=== PATIENT | female | born 1990 | race Caucasian/White ===

== ENCOUNTER 2022-01-05 19:04 | Observation (INO) ==
[2022-01-05] MEDS ORDERED: MoRPHine SULFATE 4 MG/ML 1 ML CARP\\VIAL IV STA ×3 (19:30→23:27)
[2022-01-05] MEDS ORDERED: SODIUM CHLORIDE 0.9% 1000ML 1,000 ML IV ONE (19:30)
--- NOTE | 2022-01-05 19:36 | Emergency Department Note ---
History of Present Illness General Chief complaint: Leg Injury/Pain Time Seen by Provider: 01/05/22 19:24 Source: patient Mode of arrival: ambulatory Limitations: no limitations History of Present Illness Maximum Pain Intensity: 8 This patient comes in after falling off a climbing wall. She landed on her feet she injured her left and to lesser grade the right ankle. Left ankle has some deformity to it and it significantly painful. She was brought in by EMS and was given 6 morphine IM and 4 Zofran ODT. She denies any other injuries she denies back pain or knee pain denies head pain or loss of consciousness. No headache no chest pain or shortness of breath. She denies as she is had a tubal ligation. She had anything to eat was around 200 Home Medications Medication Instructions Recorded Confirmed Type cholecalciferol (vitamin D3) 25 25 mcg PO DAILY 01/05/22 01/05/22 History mcg (1,000 unit) capsule (Vitamin D3) vitamin B complex 1 tab PO DAILY 01/05/22 01/05/22 History Allergies Allergy/AdvReac Type Severity Reaction Status Date / Time Penicillins Allergy Intermediate HIVES A Verified 01/05/22 19:59 CHILD Past Med/Surg History Social History Smoking Status: Never smoker Hx Substance Use: No Feels Safe at Home: Yes Immunizations: Historynone Allergiespenicillin Review of Systems A total of 10 systems reviewed and were otherwise negative Physical Exam Vital Signs Vital Signs - 24 hr 01/05/22 19:12 01/05/22 19:44 01/05/22 20:00 Temperature 37 C Temperature Source Oral Pulse Rate 101 H 117 H Pulse Rate [Apical] 111 H Respiratory Rate 18 18 18 Respiratory Effort / Characteristics Non-Labored Spontaneous Non-Labored Spontaneous Respiratory Depth Normal Normal Blood Pressure 130/87 Blood Pressure [Right Arm] 116/71 130/89 Blood Pressure Mean 101 Blood Pressure Mean [Right Arm] 86 Pulse Oximetry 100 100 100 Oxygen Delivery Method Room Air Room Air Nasal Cannula Oxygen Flow Rate 6 Sepsis Recent Fever Within 48 Hours No Sepsis New/Unexplained Change in Mental Status No Sepsis Action Taken by Nursing No Action Required End Tidal CO2 (18-54mmHg) 41 01/05/22 20:05 01/05/22 20:10 01/05/22 20:15 Temperature Temperature Source Pulse Rate 129 H 126 H 114 H Pulse Rate [Apical] Respiratory Rate 16 16 18 Respiratory Effort / Characteristics Respiratory Depth Blood Pressure Blood Pressure [Right Arm] 141/83 H 137/81 133/80 Blood Pressure Mean Blood Pressure Mean [Right Arm] Pulse Oximetry 100 100 100 Oxygen Delivery Method Nasal Cannula Nasal Cannula Room Air Oxygen Flow Rate 6 3 Sepsis Recent Fever Within 48 Hours Sepsis New/Unexplained Change in Mental Status Sepsis Action Taken by Nursing End Tidal CO2 (18-54mmHg) 20 24 29 01/05/22 20:20 01/05/22 20:25 01/05/22 20:30 Temperature Temperature Source Pulse Rate 110 H 102 H 106 H Pulse Rate [Apical] Respiratory Rate 18 18 18 Respiratory Effort / Characteristics Respiratory Depth Blood Pressure Blood Pressure [Right Arm] 131/86 138/86 135/91 Blood Pressure Mean Blood Pressure Mean [Right Arm] Pulse Oximetry 100 98 100 Oxygen Delivery Method Room Air Room Air Room Air Oxygen Flow Rate Sepsis Recent Fever Within 48 Hours Sepsis New/Unexplained Change in Mental Status Sepsis Action Taken by Nursing End Tidal CO2 (18-54mmHg) 19 01/05/22 20:51 01/05/22 22:48 Temperature Temperature Source Pulse Rate Pulse Rate [Apical] 94 H 99 H Respiratory Rate 18 18 Respiratory Effort / Characteristics Non-Labored Spontaneous Non-Labored Spontaneous Respiratory Depth Normal Normal Blood Pressure Blood Pressure [Right Arm] 125/79 122/74 Blood Pressure Mean Blood Pressure Mean [Right Arm] 94 90 Pulse Oximetry 98 100 Oxygen Delivery Method Room Air Room Air Oxygen Flow Rate Sepsis Recent Fever Within 48 Hours Sepsis New/Unexplained Change in Mental Status Sepsis Action Taken by Nursing End Tidal CO2 (18-54mmHg) General: Well developed well nourished female who is complaining of pain in her left ankle in no acute distress, breathing comfortably on room air. Normal speech HEENT: Normal cephalic atraumatic. Pupils are equal round and reactive to light. Extraocular movements are intact. Oropharynx is pink with moist mucous membranes. No swelling of the mouth lips or tongue. Neck: Supple with a midline trachea. No meningeal signs or stiffness, no JVD or bruits. No Stridor. Chest: Clear to auscultation bilaterally. No wheezes or rhonchi. No increased work of breathing. Heart: Regular rate and rhythm without murmurs or gallops. Abdomen: Soft nontender, nondistended without rebound guarding or rigidity. Extremities: No cyanosis clubbing or edema. No calf tenderness or assymetry. the left ankle is closed but looks deformity is distal pulses and capillary refill. There is no significant swelling of the right she has mild tenderness. Spine/Back. Non tender to palpation. No CVA tenderness Skin: Good turgor without rashes. Neurologic exam: Cranial nerves two through 12 are intact. Motor and sensation are intact and symmetrical throughout. Respiratory normal respiratory effort, lungs clear to auscultation Cardiovascular RRR, no murmur, no edema Rate/Rhythm: regular rate and regular rhythm Heart Sounds: normal S1 and normal S2; no murmur Palpation: + palpable S3 Vessels: no JVD Extremities: normal capillary refill; no calf tenderness and no edema Procedures Free Text Procedures Procedural Sedation Indication fracture/dislocation of left ankle Total time: 15 minutes. Written consent was obtained after the risks and benefits were explained to and her, i significant otherncluding, but not limited to aspiration, allergic reaction, breathing difficulties, cardiac complications, vomiting, pain, event recall, bleeding, and/or infection. Pre-sedation examination and paperwork completed. The patient was on 100% oxygen via NRB prior to the procedure. Continous end tidal CO2 monitoring, pulse oximetry, and cardiac monitoring were utilized. Suction, airway equipment, medications, respiratory equipment, and appropriate personnel were prepared prior to the initiation of the procedure. A time out was taken. Sedation was achieved utilizing 70 mg of Ketamine . After I observed the patient had reached the appropriate level of sedation the main procedure was performed without complication. Sedation was discontinued and the monitoring continued. The patient recovered quickly from the effects of the medication without complication or adverse event. Course Administered Medications Discontinued Medications Sodium Chloride (Nss 1000ml) 1,000 mls @ 999 mls/hr IV .Q1H1M ONE Stop: 01/05/22 20:30 Last Infusion: 01/05/22 20:28 Dose: 0 mls/hr Documented By: Admin: 01/05/22 19:36 Dose: 999 mls/hr Documented By: VIMAL Ketamine HCl (Ketamine Hcl Inj 50 Mg/Ml 10 Ml Vial) Confirm Administered Dose 500 mg .ROUTE .STK-MED ONE Stop: 01/05/22 19:58 Last Increment: 01/05/22 20:17 Dose: 70 mg Documented By: ANEL Ketorolac Tromethamine (Ketorolac Tromethamine 15 Mg/Ml Vial) 10 mg IV NOW ONE Stop: 01/06/22 00:58 Last Admin: 01/06/22 01:03 Dose: 10 mg Documented By: MAEVE Morphine Sulfate (Morphine Sulfate 4 Mg/Ml 1 Ml Carp\Vial) 4 mg IV NOW STA Stop: 01/05/22 19:31 Last Admin: 01/05/22 19:36 Dose: 4 mg Documented By: VIMAL Morphine Sulfate (Morphine Sulfate 4 Mg/Ml 1 Ml Carp\Vial) 4 mg IV NOW STA Stop: 01/05/22 20:59 Last Admin: 01/05/22 21:19 Dose: 4 mg Documented By: VIMAL Morphine Sulfate (Morphine Sulfate 4 Mg/Ml 1 Ml Carp\Vial) 4 mg IV NOW STA Stop: 01/05/22 23:28 Last Admin: 01/05/22 23:37 Dose: 4 mg Documented By: MAEVE Morphine Sulfate (Morphine Sulfate 4 Mg/Ml 1 Ml Carp\Vial) 4 mg IV NOW STA Stop: 01/06/22 00:58 Last Admin: 01/06/22 01:03 Dose: 4 mg Documented By: MAEVE Medical Decision Making Differential Diagnosis fracture, ankle dislocation, orthopedic injuries, spinal injuries Laboratory Data Attestation: I reviewed the patient's lab results. Left ankle Right ankle Result diagrams: 01/06/22 00:00 01/06/22 00:00 Lab Results 01/06/22 01/06/22 01/06/22 Range/Units 00:00 00:00 00:00 WBC 13.63 H (4.8-10.8) K/ul RBC 4.12 (3.93-5.22) M/uL Hgb 12.3 (12.0-16.0) g/dl Hct 37.3 (34.1-44.9) % MCV 90.5 (80.0-100.0) fL MCH 29.9 (25.0-34.0) pg MCHC 33.0 (32.0-36.0) g/dL RDW Std Deviation 42.9 (36.4-46.3) fL RDW Coeff of Kamille 13.0 (11.5-14.5) % Plt Count 246 (130-400) K/uL MPV 10.8 (9.4-12.3) fL Immature Gran % (Auto) 0.3 % Neut % (Auto) 67.3 % Lymph % (Auto) 25.8 % Perry % (Auto) 6.2 % Eos % (Auto) 0.1 % Baso % (Auto) 0.3 % Neut # (Auto) 9.18 H (1.4-6.5) K/uL Lymph # (Auto) 3.51 H (1.2-3.4) K/uL Perry # (Auto) 0.85 H (0.24-0.82) K/uL Eos # (Auto) 0.01 (0-0.50) K/uL Baso # (Auto) 0.04 (0-0.2) K/uL Immature Gran # (Auto) 0.04 H (0.00-0.02) K/uL Sodium 139 (136-145) mmol/L Potassium 3.6 (3.5-5.1) mmol/L Chloride 108 H (98-107) mmol/L Carbon Dioxide 21 (21-32) mmol/L Anion Gap 10 (3-11) BUN 9 (6-23) mg/dl Creatinine 0.82 (0.6-1.2) mg/dl Est Cr Clr Drug Dosing 105.6 ml/min Est GFR ( Amer) 111.3 ml/min Est GFR (Non-Af Amer) 96.0 ml/min BUN/Creatinine Ratio 11.0 (10-20) Glucose 98 (70-99(Fasting)) mg/dl Calcium 8.7 (8.5-10.1) mg/dl Total Bilirubin 0.6 (0.2-1.0) mg/dl AST 24 (13-39) U/L ALT 6 L (7-52) U/L Alkaline Phosphatase 46 (34-104) U/L Total Protein 6.4 (6.0-8.3) gm/dl Albumin 4.3 (3.4-5.0) gm/dl Globulin 2.1 L (2.5-4.0) gm/dl Albumin/Globulin Ratio 2.0 (0.9-2) Lipase 8 L (11-82) U/L HCG, Qual Negative (Negative) SARS-CoV-2, RNA, NAAT (NEGATIVE) 08/03/22 Range/Units 00:05 WBC (4.8-10.8) K/ul RBC (3.93-5.22) M/uL Hgb (12.0-16.0) g/dl Hct (34.1-44.9) % MCV (80.0-100.0) fL MCH (25.0-34.0) pg MCHC (32.0-36.0) g/dL RDW Std Deviation (36.4-46.3) fL RDW Coeff of Kamille (11.5-14.5) % Plt Count (130-400) K/uL MPV (9.4-12.3) fL Immature Gran % (Auto) % Neut % (Auto) % Lymph % (Auto) % Perry % (Auto) % Eos % (Auto) % Baso % (Auto) % Neut # (Auto) (1.4-6.5) K/uL Lymph # (Auto) (1.2-3.4) K/uL Perry # (Auto) (0.24-0.82) K/uL Eos # (Auto) (0-0.50) K/uL Baso # (Auto) (0-0.2) K/uL Immature Gran # (Auto) (0.00-0.02) K/uL Sodium (136-145) mmol/L Potassium (3.5-5.1) mmol/L Chloride (98-107) mmol/L Carbon Dioxide (21-32) mmol/L Anion Gap (3-11) BUN (6-23) mg/dl Creatinine (0.6-1.2) mg/dl Est Cr Clr Drug Dosing ml/min Est GFR ( Amer) ml/min Est GFR (Non-Af Amer) ml/min BUN/Creatinine Ratio (10-20) Glucose (70-99(Fasting)) mg/dl Calcium (8.5-10.1) mg/dl Total Bilirubin (0.2-1.0) mg/dl AST (13-39) U/L ALT (7-52) U/L Alkaline Phosphatase (34-104) U/L Total Protein (6.0-8.3) gm/dl Albumin (3.4-5.0) gm/dl Globulin (2.5-4.0) gm/dl Albumin/Globulin Ratio (0.9-2) Lipase (11-82) U/L HCG, Qual (Negative) SARS-CoV-2, RNA, NAAT NEGATIVE (NEGATIVE) Imaging Data Attestation: I personally reviewed and interpreted this imaging study as follows: My Impression: Left ankle shows a trimalleolar fracture dislocation. Post reduction shows good alignment Right foot shows possible lucency at the proximal fifth metatarsal and questionable middle cuneiform lucency Radiologist's Impression: Ankle X-Ray 01/05/22 19:30 LEFT ANKLE 2 VIEWS CLINICAL HISTORY: Left ankle injury. FINDINGS: AP and crosstable lateral views of left ankle are obtained. No prior studies are available for comparison at the time of dictation. The skeletal structures are well mineralized. There is a displaced and overriding comminuted spiral fracture of the distal fibular shaft. The distal fragment is angulated and displaced dorsally by at least 6 mm. There is a displaced fracture through the base of the medial malleolus, with lateral displacement of the medial malleolus by approximately 1.5 cm. There is dorsal and lateral dislocation of the talus at the talonavicular articulation. The talus is displaced dorsally by approximately 2.5 cm and laterally by approximately 2 cm. There is valgus angulation at the tibiotalar joint. Joint effusion is noted with overlying soft tissue edema. IMPRESSION: Bimalleolar fracture/dislocation at the ankle joint as above. Electronically signed by: Ryder Garcia M.D. 01/05/2022 7:55 PM Ankle X-Ray 01/05/22 19:30 RIGHT ANKLE 2 VIEWS CLINICAL HISTORY: Right ankle injury. FINDINGS: AP and crosstable lateral views of the right ankle are obtained. No prior studies are available for comparison at the time of dictation. The skeletal structures are well mineralized. There is an indeterminant ossific density along the anterior aspect of the tibiotalar articulation which may represent an avulsion fracture. No additional fracture is seen. The ankle mortise is intact. There is a small joint effusion. Mild soft tissue swelling is seen around the ankle. IMPRESSION: 1. There is an indeterminant ossific density seen anteriorly at the tibiotalar articulation which may represent an avulsion fracture. 2. No additional findings are concerning for acute fracture. Electronically signed by: Ryder Garcia M.D. 01/05/2022 7:51 PM Ankle X-Ray 01/05/22 20:10 LEFT ANKLE 2 VIEWS CLINICAL HISTORY: Postreduction examination. FINDINGS: AP and crosstable lateral views of the left ankle are compared to study performed earlier the same day 01/05/2022. The skeletal structures are well mineralized. There is significantly improved alignment of bimalleolar fractures as compared to the prereduction examination. There is persistent lateral offset of the distal fibular fragment by 3 mm. There is minimal offset of the medial malleolar fragment and mild widening of the medial joint space. AP alignment is near-anatomic. There is a joint effusion an overlying soft tissue edema. There is also likely a tiny displaced avulsion fracture of the posterior tibial plafond. IMPRESSION: Significant improved alignment of distal tibial and fibular fractures status as above post external reduction. Electronically signed by: Ryder Garcia M.D. 01/05/2022 9:[address] of the right footstat rad: Subtle cortical fracture of the talar dome at the lateral aspect of the talar dome may reflect acute osteochondral drawl injury. Lateral cortex fracture of the calcaneus. Subtle linear cortical fracture at the anterior aspect of the posterior subtalar joint near the base of the sustenaculum nae MDM Narrative This patient comes in as above she fell her only complaints are ankle pain mostly on the left. His deformity is neurologically neurovascular intact and it is closed. IV access had been established and she was given additional morphine 4 mg IV and I ordered stat x-rays. She was kept NPO. X-rays confirm a significant fracture dislocation. It is closed. It has been 6 hours since she had food and she was in significant pain I explained the risk and the benefits and we did sedate her. I performed the sedation with ketamine. Please refer to the note she tolerated this well. Dr. Oquendo did the reduction. Please refer to his note. The patient was easily reduced with the sedation and postreduction films show good alignment a splint was placed. The patient was feeling a lot better. She is continuing some mild right ankle pain which seems diffuse may be also in the foot so I did get some further foot x-rays. There is a small avu lsion near the tail of the talus area and may be a small avulsion in the area of the fifth metatarsal. I am also questioning a possible nondisplaced cuneiform fracture. I did the patient was unable to ambulate I do think needs to be admitted for pain management and further evaluation I also did order a CT of the foot I further talked with Dr. Odell who recommended this. I have consulted the hospitalist to see the patient for these measures. Prior additional IV morphine for pain management as well while she was in the ED. CAT scan of the foot does show some subtle irregularities and she may have a lateral cortex fracture of the calcaneus with other possible linear injuries. She has no further complaint she has no back pain or abdominal pain. Her COVID test was negative. test is negative. she will be admitted/observed. Continuous cardiac monitoring: Due to the fact that we were sedating her and she was getting pain medication she was placed on a potline monitor and had normal sinus rhythm with a rate of 100 upon my interpretation Impression & Plan Closed fracture of ankle, trimalleolar, Fall, Foot fracture, right, Lab test negative for COVID-19 virus, Not currently Discharge Plan Visit Data Chief Complaint: Leg Injury/Pain ED Provider: Robert Clemens Discharge Problem: Closed fracture of ankle, trimalleolar, Fall, Foot fracture, right, Lab test negative for COVID-19 virus, Not currently Forms Stand Alone Forms: My [facility] [employer] Prescriptions Prescriptions: No Action vitamin B complex Tablet 1 tab PO DAILY cholecalciferol (vitamin D3) [Vitamin D3] 25 mcg (1,000 unit) Capsule 25 mcg PO DAILY [facility]errals [facility]Non[facility] - Sedation Data Time Out Team Members Agree on the Following: Correct Patient Site Marking Visible after Draping: Yes Team Agrees: Yes Time Out Performed Time: 20:00 Sedation Times Sedation Start Date: 01/05/22 Sedation Start Time: 20:02 Sedation End Date: 01/05/22 Sedation End Time: 20:06 Total Sedation Time: 4 Procedure Times Procedure Start Time:: 20:04 Procedure End Time: 20:05 Pre Sedation Assessment Vital Signs Temp Pulse Pulse Resp BP BP Pulse Ox 01/05/22 22:48 99 H 18 122/74 100 01/05/22 20:51 94 H 18 125/79 98 01/05/22 20:30 106 H 18 135/91 100 01/05/22 20:25 102 H 18 138/86 98 01/05/22 20:20 110 H 18 131/86 100 01/05/22 20:15 114 H 18 133/80 100 01/05/22 20:10 126 H 16 137/81 100 01/05/22 20:05 129 H 16 141/83 H 100 01/05/22 20:00 117 H 18 130/89 100 01/05/22 19:44 111 H 18 116/71 100 01/05/22 19:12 37 C 101 H 18 130/87 100 O2 Del Method O2 Flow Rate 01/05/22 22:48 Room Air 01/05/22 20:51 Room Air 01/05/22 20:30 Room Air 01/05/22 20:25 Room Air 01/05/22 20:20 Room Air 01/05/22 20:15 Room Air 01/05/22 20:10 Nasal Cannula 3 01/05/22 20:05 Nasal Cannula 6 01/05/22 20:00 Nasal Cannula 6 01/05/22 19:44 Room Air 01/05/22 19:12 Room Air Cardiovascular RRR, no murmur, no edema + regular rate and + regular rhythm + S1 normal and + S2 normal; no murmur + palpable S3 no JVD + capillary refill normal; no calf tenderness and no edema Respiratory normal respiratory effort, lungs clear to auscultation Pre-Sedation Airway Assessment Smoking Status: Never smoker Hx Sleep Apnea: No Short, Thick Neck: No Thyromental Distance: > or= 3.5 Finger Breadths Oral Cavity: + WNL Mallampati Class: I ASA: ASA1 NPO Status Date of Last Intake of Fluids: 01/05/22 Time of Last Intake of Fluids: 15:00 Date of Last Intake of Solid Food: 01/05/22 Time of Last Intake of Solid Foods: 14:30 Procedure Planning Contraindications for Sedation: none Notes The planned sedation has been discussed with the patient. Informed Consent was obtained. I have identified the patient, determined the appropriateness of sedation and have assessed the patient immediately prior to the procedure. All medicine(s) and interventions are by my order. Post Sedation Assessment Vital Signs Temp Pulse Pulse Resp BP BP Pulse Ox 01/05/22 22:48 99 H 18 122/74 100 01/05/22 20:51 94 H 18 125/79 98 01/05/22 20:30 106 H 18 135/91 100 01/05/22 20:25 102 H 18 138/86 98 01/05/22 20:20 110 H 18 131/86 100 01/05/22 20:15 114 H 18 133/80 100 01/05/22 20:10 126 H 16 137/81 100 01/05/22 20:05 129 H 16 141/83 H 100 01/05/22 20:00 117 H 18 130/89 100 01/05/22 19:44 111 H 18 116/71 100 01/05/22 19:12 37 C 101 H 18 130/87 100 O2 Del Method O2 Flow Rate 01/05/22 22:48 Room Air 01/05/22 20:51 Room Air 01/05/22 20:30 Room Air 01/05/22 20:25 Room Air 01/05/22 20:20 Room Air 01/05/22 20:15 Room Air 01/05/22 20:10 Nasal Cannula 3 01/05/22 20:05 Nasal Cannula 6 01/05/22 20:00 Nasal Cannula 6 01/05/22 19:44 Room Air 01/05/22 19:12 Room Air Recovery Score Activity: Moves 4 extremities Respiration: Deep Breath/Cough Circulation: +/-20% PreAnes Value Consciousness: Fully Awake Oxygen Saturation: > 92% On Room Air Post Anesthesia Score: 10 Discharge Sedation Level of Care: Fast Track Phase II Unexpected Event: None Post Sedation Plan On clinical assessment, the patient appears to have tolerated the sedation without complications. Patient is recovering as anticipated. Patient will continue to be monitored by nursing and may be discharged when sedation discharge criteria are met per below protocol. Upon Completions of procedure up to 15 minutes continue every 5 minute vital signs and the P.A.R. score; then discharge to a Phase I or Fast Track to Phase II per the following guidelines: * Discharge Patient to appropriate Phase II area if PAR is 8 or greater or return to pre- procedure baseline. The post - procedure orders will be as directed. * If PAR score is less than 8 or not return to pre-procedure baseline then patient will follow Phase I monitoring till PAR is reached for Phase II. The Phase I may be done in procedure room or may call to secure a Phase I area. * If naloxone or flumazenil are used for reversal, hold in Phase I for continued monitoring from when last reversal dose was given for a minimum of 60 minutes or longer pending the nurse and/or physician discretion of patient condition before discharge to Phase II. Please call the Sedation Physician to re-evaluate and complete post-note for discharge to Phase II area. Do NOT discharge from procedure sedation or Phase 1 until post- sedation evaluation note is complete by procedure /sedation MD Sedation Discharge Instructions to be given to the patient at discharge to home. Post Sedation Assessment Vital Signs Temp Pulse Pulse Resp BP BP Pulse Ox 01/05/22 22:48 99 H 18 122/74 100 01/05/22 20:51 94 H 18 125/79 98 01/05/22 20:30 106 H 18 135/91 100 01/05/22 20:25 102 H 18 138/86 98 01/05/22 20:20 110 H 18 131/86 100 01/05/22 20:15 114 H 18 133/80 100 01/05/22 20:10 126 H 16 137/81 100 01/05/22 20:05 129 H 16 141/83 H 100 01/05/22 20:00 117 H 18 130/89 100 01/05/22 19:44 111 H 18 116/71 100 01/05/22 19:12 37 C 101 H 18 130/87 100 O2 Del Method O2 Flow Rate 01/05/22 22:48 Room Air 01/05/22 20:51 Room Air 01/05/22 20:30 Room Air 01/05/22 20:25 Room Air 01/05/22 20:20 Room Air 01/05/22 20:15 Room Air 01/05/22 20:10 Nasal Cannula 3 01/05/22 20:05 Nasal Cannula 6 01/05/22 20:00 Nasal Cannula 6 01/05/22 19:44 Room Air 01/05/22 19:12 Room Air Recovery Score Activity: Moves 4 extremities Respiration: Deep Breath/Cough Circulation: +/-20% PreAnes Value Consciousness: Fully Awake Oxygen Saturation: > 92% On Room Air Post Anesthesia Score: 10 Discharge Sedation Level of Care: Phase I Post Sedation Plan On clinical assessment, the patient appears to have tolerated the sedation w ithout complications. Patient is recovering as anticipated. Patient will continue to be monitored by nursing and may be discharged when sedation discharge criteria are met per below protocol. Upon Completions of procedure up to 15 minutes continue every 5 minute vital signs and the P.A.R. score; then discharge to a Phase I or Fast Track to Phase II per the following guidelines: * Discharge Patient to appropriate Phase II area if PAR is 8 or greater or return to pre- procedure baseline. The post - procedure orders will be as directed. * If PAR score is less than 8 or not return to pre-procedure baseline then patient will follow Phase I monitoring till PAR is reached for Phase II. The Phase I may be done in procedure room or may call to secure a Phase I area. * If naloxone or flumazenil are used for reversal, hold in Phase I for continued monitoring from when last reversal dose was given for a minimum of 60 minutes or longer pending the nurse and/or physician discretion of patient condition before discharge to Phase II. Please call the Sedation Physician to re-evaluate and complete post-note for discharge to Phase II area. Do NOT discharge from procedure sedation or Phase 1 until post- sedation evaluation note is complete by procedure /sedation MD Sedation Discharge Instructions to be given to the patient at discharge to home. : Closed fracture of ankle, trimalleolar Qualifiers: Encounter type: initial encounter Laterality: left Qualified Code(s): S82.852A - Displaced trimalleolar fracture of left lower leg, initial encounter for close d fracture Fall Qualifiers: Encounter type: initial encounter Qualified Code(s): W19.XXXA - Unspecified fall, initial encounter Foot fracture, right Qualifiers: Encounter type: initial encounter Fracture type: closed Qualified Code(s): S92.901A - Unspecified fracture of right foot, initial encounter for closed fracture
--- NOTE | 2022-01-05 19:55 | XRay Report ---
RIGHT ANKLE 2 VIEWS CLINICAL HISTORY: Right ankle injury. FINDINGS: AP and crosstable lateral views of the right ankle are obtained. No prior studies are avail able for comparison at the time of dictation. The skeletal structures are well mineralized. There is an indeterminant ossific density along the anterior aspect of the tibiotalar articulation which may r epresent an avulsion fracture. No additional fracture is seen. The ankle mortise is intact. There is a small joint effusion. Mild soft tissue swelling is seen around the ankle. IMPRESSION: 1. There is an indeterminant ossific density seen anteriorly at the tibiotalar articulation which may represent an avulsion fracture. 2. No additional findings are concerning for acute fracture. Electronically signed by: Ryder Garcia M.D. 01/05/2022 7:51 PM
--- NOTE | 2022-01-05 19:56 | XRay Report ---
LEFT ANKLE 2 VIEWS CLINICAL HISTORY: Left ankle injury. FINDINGS: AP and crosstable lateral views of left ankle are obtained. No prior studies are available for comparison at the time of dictation. The skeletal structures are well mineralized. There is a dis placed and overriding comminuted spiral fracture of the distal fibular shaft. The distal fragment is angulated and displaced dorsally by at least 6 mm. There is a displaced fracture through the base of the medial malleolus, with lateral displacement of the medial malleolus by approximately 1.5 cm. Ther e is dorsal and lateral dislocation of the talus at the talonavicular articulation. The talus is disp laced dorsally by approximately 2.5 cm and laterally by approximately 2 cm. There is valgus angulatio n at the tibiotalar joint. Joint effusion is noted with overlying soft tissue edema. IMPRESSION: Bimalleolar fracture/dislocation at the ankle joint as above. Electronically signed by: Ryder Garcia M.D. 01/05/2022 7:55 PM
[2022-01-05] MEDS ORDERED: KETAMINE HCL INJ 50 MG/ML 10 ML VIAL ONE (19:57)
--- NOTE | 2022-01-05 20:25 | Emergency Department Note ---
ED Visit Note Procedure note Procedure: Closed reduction of left trimalleolar ankle fracture dislocation Indication: Closed left trimalleolar ankle fracture dislocation The patient is a 31-year-old female who presented to the emergency department after a significant fall. She fell approximately 8 feet onto her feet while she was in an indoor rockclimbing facility. The patient had no other injuries on my physical exam. X-rays did reveal a trimalleolar fracture which had anterior displacement. The patient was felt to be a good candidate for emergent re duction using procedural sedation. Please see Dr. Clemens's note for procedural sedation note. Once the patient was showing the effects of the sedation the left knee was brought into flexion. Traction was applied on the ankle with good reduction to palpation. A splint was applied using a sugar-tong splint and a posterior splint. Capillary refill was brisk. The patient tolerated procedure well. X-rays pending. .
--- NOTE | 2022-01-05 21:58 | XRay Report ---
LEFT ANKLE 2 VIEWS CLINICAL HISTORY: Postreduction examination. FINDINGS: AP and crosstable lateral views of the left ankle are compared to study performed earlier t he same day 01/05/2022. The skeletal structures are well mineralized. There is significantly improved a lignment of bimalleolar fractures as compared to the prereduction examination. There is persistent la teral offset of the distal fibular fragment by 3 mm. There is minimal offset of the medial malleolar fragment and mild widening of the medial joint space. AP alignment is near-anatomic. There is a joint effusion an overlying soft tissue edema. There is also likely a tiny displaced avulsion fracture of the posterior tibial plafond. IMPRESSION: Significant improved alignment of distal tibial and fibular fractures status as above pos t external reduction. Electronically signed by: Ryder Garcia M.D. 01/05/2022 9:57 PM
[2022-01-06 00:43] LABS: Basophils # (auto) 0.04 K/uL (0-0.2); Basophils % (auto) 0.3 %; Eosinophils # (auto) 0.01 K/uL (0-0.50); Eosinophils % (auto) 0.1 %; Hematocrit (blood only) 37.3 % (34.1-44.9); Hemoglobin 12.3 g/dl (12.0-16.0); Immature Granulocytes # (auto) 0.04 K/uL (0.00-0.02); Immature Granulocytes % (auto) 0.3 %; Lymphocytes # (auto) 3.51 K/uL (1.2-3.4); Lymphocytes % (auto) 25.8 %; Mean Corpuscular Hemoglobin 29.9 pg (25.0-34.0); Mean Corpuscular Volume 90.5 fL (80.0-100.0); Mean Platelet Volume 10.8 fL (9.4-12.3); Monocytes # (auto) 0.85 K/uL (0.24-0.82); Monocytes % (auto) 6.2 %; Neutrophils # (auto) 9.18 K/uL (1.4-6.5); Neutrophils % (auto) 67.3 %; Platelet Count 246 K/uL (130-400); RDW Standard Deviation 42.9 fL (36.4-46.3); Red Blood Count 4.12 M/uL (3.93-5.22); White Blood Count 13.63 K/ul (4.8-10.8)
[2022-01-06] MEDS ORDERED: MoRPHine SULFATE 4 MG/ML 1 ML CARP\\VIAL IV STA (00:57)
[2022-01-06] MEDS ORDERED: KETOROLAC TROMETHAMINE 15 MG/ML VIAL IV ONE (00:57)
--- NOTE | 2022-01-06 00:58 | History & Physical Report ---
Date of Service January 06, 2022 Assessment & Plan (1) Closed fracture of ankle, trimalleolar: Plan: 31yo female without significant PMH presents with bilateral foot/ankle pain after falling from a height of approximately 8 feet while rock climbing in the evening on 01/05/22. Ankle fractures/dislocation s/p 8ft fall Neurovascularly intact per ED provider exam XR right ankle: indeterminant ossific density seen anteriorly at the tibiotala r articulation which may represent an avulsion fracture XR left ankle: significant improved alignment of distal tibial and fibular fractures status as above post external reduction CT right foot ([facility] read): subtle cortical fracture of the talar dome at the lateral aspect of the talar dome may reflect acute osteochondral drawl injury; lateral cortex fracture of the calcaneus; subtle linear cortical fracture at the anterior aspect of the posterior subtalar joint near the base of the sustenaculum nae Closed reduction of left ankle dislocation performed in ED and tolerated well In the ED, required morphine 4mg IV about every two hours Suspect mild leukocytosis secondary to trauma and pain Ortho consulted Pain control plan: APAP 1000mg q8h scheduled Ketorolac 15mg IV q6h prn mild pain Oxycodone 10mg q4h prn moderate pain Morphine 2mg IV q4h prn severe pain Zofran prn nausea NPO pending ortho evaluation FEN: NPO, LR @ 80mL/hr (x1 bag ordered) Code status: full code DVT ppx: not indicated Held home meds: none Consults: ortho Dispo: med/surg (2) Foot fracture, right: (3) Fall: History of Present Illness Primary Care Provider: NO PCP 31yo female without significant PMH presents with bilateral foot/ankle pain after falling from a height of approximately 8 feet while rock climbing in the evening on 01/05/22. Patient landed on both feet but notes her left foot "took the brunt of it". Patient endorses severe foot/ankle pain bilaterally, though improved since arriving to the ED. Patient was nauseous immediately after falling and vomited once, but her nausea has since resolved. Patient has not been able to ambulate secondary to pain. Denies numbness, tingling, or weakness of lower extremities bilaterally. Patient denies fever, chills, headache, vision changes, CP, palpitations, SOB, abdominal pain, dysuria, lightheadedness, dizziness, or other symptoms. Of note, patient denies a chance of due to her history of tubal ligation. Upon arrival, vitals were notable for mild tachycardia to the 110s which has been improving. No tachypnea, patient afebrile, SpO2 adequate on room air. Ini tial labs were notable for mild leukocytosis (13.6) and were otherwise unremarkable. In the ED, patient underwent imaging which showed bilateral foot/ankle fractures (see A/P for imaging results) and dislocation of the left ankle, which was reduced in the ED. Patient required morphine for pain control, about 4mg IV every two hours. Surrogate decision-maker in case of an emergency: boyfriend Matti Scales (cell: [phone]) Allergies Allergy/AdvReac Type Severity Reaction Status Date / Time Penicillins Allergy Intermediate HIVES A Verified 01/05/22 19:59 CHILD Home Medications Medication Instructions Recorded Confirmed Type cholecalciferol (vitamin D3) 25 25 mcg PO DAILY 01/05/22 01/05/22 History mcg (1,000 unit) capsule (Vitamin D3) vitamin B complex 1 tab PO DAILY 01/05/22 01/05/22 History Past Med/Surg History Medical History (Updated 01/06/22 @ 11:05 by Isai Cramer PA-C) Tubal ectopic Surgical History (Updated 01/06/22 @ 11:06 by Isai Cramer PA-C) History of eye surgery History of laparoscopy Family History (Updated 01/06/22 @ 11:07 by Isai Cramer PA-C) Other Breast cancer Hypertension Thyroid disease Social History (Updated 01/06/22 @ 11:07 by Isai Cramer PA-C) Smoking Status: Former smoker Second Hand Exposure: No; Do You Dip or Chew Tobacco: No; Tobacco Cessation Education Requested by Patient: No Hx Alcohol Use: Yes Hx Substance Use: No Preferred Language: Algerian Communication Ability: Effective Hearing Ability: Normal Insurance Attorney Required: No Beliefs That Will Affect Care: None marital status: Single Current Living Situation: Significant Other current occupational status: employed Other Information That Helps Us Care for You: No Feels Safe at Home: Yes Safety Concerns: Feels Safe At This Time Assistive Devices: None Physical Exam Physical Exam: Constitutional: anxious-appearing but in no acute distress HEENT: NCAT CV: regular rhythm, no murmur appreciated, extremities well-perfused, no LE edema Resp: CTABL, no wheezes/rales/rhonchi appreciated, no increased work of breathing GI: soft, nondistended, nontender, BS normoactive MSK: lower extremities wrapped and in braces, exam deferred as ED provider had just performed this Neuro: alert, oriented, no focal neurologic deficit appreciated Results & Data Results & Data ([facility]) Vital Signs (Past 12 Hours) Vital Signs Temp Pulse Pulse Resp BP BP Pulse Ox 01/05/22 22:48 99 H 18 122/74 100 01/05/22 20:51 94 H 18 125/79 98 01/05/22 20:30 106 H 18 135/91 100 01/05/22 20:25 102 H 18 138/86 98 01/05/22 20:20 110 H 18 131/86 100 01/05/22 20:15 114 H 18 133/80 100 01/05/22 20:10 126 H 16 137/81 100 01/05/22 20:05 129 H 16 141/83 H 100 01/05/22 20:00 117 H 18 130/89 100 01/05/22 19:44 111 H 18 116/71 100 01/05/22 19:12 37 C 101 H 18 130/87 100 O2 Del Method O2 Flow Rate 01/05/22 22:48 Room Air 01/05/22 20:51 Room Air 01/05/22 20:30 Room Air 01/05/22 20:25 Room Air 01/05/22 20:20 Room Air 01/05/22 20:15 Room Air 01/05/22 20:10 Nasal Cannula 3 01/05/22 20:05 Nasal Cannula 6 01/05/22 20:00 Nasal Cannula 6 01/05/22 19:44 Room Air 01/05/22 19:12 Room Air Supervising Physician Co-Signing Physician Notes Attending addendum: I have physically seen this patient, have supervised the medical residents activities, and agree with the H&P unless as otherwise noted. Assessment and Plan: Bilateral ankle fractures- Status post fall from 8 feet while rock climbing X-ray of right ankle shows possible avulsion fracture X-ray left ankle shows significant improved alignment of distal tibial and fibular fractures status post external reduction CT of right foot shows multiple fractures as noted Orthopedic surgery aware of patient and has asked medicine to admit Acetaminophen 1000 mg p.o. every 8 hours Toradol 15 mg IV every 6 hours as needed mild pain Oxycodone 10 mg p.o. every 4 hours as needed moderate pain Morphine sulfate 2 mg IV every 4 hours as needed severe pain Zofran 4 mg IV every 6 hours as needed N.p.o. until seen by orthopedic surgery Remaining orders and notations as noted Resident Activity Tracking Resident Involvement: Resident Care Provided and Certified Medicine Aide Coverage Note Care Provided: Adult Hospital Medicine (1) Closed fracture of ankle, trimalleolar Encounter type: initial encounter Laterality: left Qualified Code(s): S82.852A - Displaced trimalleolar fracture of left lower leg, initial encounter for closed fracture (2) Foot fracture, right Encounter type: initial encounter Fracture type: closed Qualified Code(s): S92.901A - Unspecified fracture of right foot, initial encounter for closed fracture (3) Fall Encounter type: initial encounter Qualified Code(s): W19.XXXA - Unspecified fall, initial encounter
[2022-01-06 01:04] LABS: Albumin Level 4.3 gm/dl (3.4-5.0); Bilirubin,Total 0.6 mg/dl (0.2-1.0); Calcium 8.7 mg/dl (8.5-10.1); Creatinine Clr Calc Pharmacy 105.6 ml/min; Est GFR (African American) 111.3 ml/min; Globulin 2.1 gm/dl (2.5-4.0); Potassium 3.6 mmol/L (3.5-5.1); Total Protein 6.4 gm/dl (6.0-8.3)
[2022-01-06 01:13] LABS: Pregnancy Test, Serum Negative (Negative)
[2022-01-06] MEDS ORDERED: oxyCODONE HCL IR 5 MG TAB (IMMEDIATE RELEASE) PO PRN (02:30)
[2022-01-06] MEDS ORDERED: LACTATED RINGER'S 1,000 ML IV SCH (02:39)
[2022-01-06] MEDS: ACETAMINOPHEN 500 MG TAB PO SCH ×3 (04:07→19:50)
[2022-01-06] MEDS: MoRPHine SULFATE 2 MG/ML CARP IV PRN ×2 (04:17→09:12)
[2022-01-06] MEDS: ONDANSETRON INJ 2 MG/ML 2 ML VIAL IV PRN ×3 (04:22→21:58)
[2022-01-06] MEDS ORDERED: KETOROLAC TROMETHAMINE 15 MG/ML VIAL IV PRN (06:00)
--- NOTE | 2022-01-06 06:54 | XRay Report ---
XR foot RT min 3V routine HISTORY: 31 years-old Female fall, rt foot pain acute pain of the right foot status post trauma COMPARISON: CT right foot of same day, right ankle radiographs 01/05/2022 TECHNIQUE: 3 views of the right foot FINDINGS: Subtle acute fracture involving the lateral cortex of the calcaneal body with mild adjacent soft tiss ue swelling. Linear fracture fragment involving the talar dome is again noted measuring up to approxi mately 9 mm. No dislocation or significant osteoarthritis. IMPRESSION: 1. Subtle acute fracture involves the lateral cortex of the calcaneus. 2. Acute fracture of the talar dome again noted. ACT 112: Negative or not required by law. The above report was generated using voice recognition software. It may contain grammatical, syntax o r spelling errors. Electronically signed by: Cuauhtemoc Leal M.D. 01/06/2022 6:51 AM
--- NOTE | 2022-01-06 07:58 | Hospitalist Progress Note ---
Date of Service January 06, 2022 Assessment & Plan (1) Closed fracture of ankle, trimalleolar: Plan: 31yo female without significant PMH presents with bilateral foot/ankle pain after falling from a height of approximately 8 feet while rock climbing in the evening on 01/05/22. Ankle fractures/dislocation Neurovascularly intact per ED provider exam XR right ankle: indeterminant ossific density seen anteriorly at the tibiotalar articulation which may represent an avulsion fracture XR left ankle: significant improved alignment of distal tibial and fibular fractures status as above post external reduction CT right foot ([facility] read): subtle cortical fracture of the talar dome at the lateral aspect of the talar dome may reflect acute osteochondral drawl injury; lateral cortex fracture of the calcaneus; subtle linear cortical frac ture at the anterior aspect of the posterior subtalar joint near the base of the sustenaculum nae Closed reduction of left ankle dislocation performed in ED and tolerated well In the ED, required morphine 4mg IV about every two hours Suspect mild leukocytosis secondary to trauma and pain Ortho consulted Pain control plan: APAP 1000mg q8h scheduled Ketorolac 30mg IV Q6 schedule Dilaudid IV 1mg push for current pain --> Dilaudid 1mg IV Q4H prn Zofran prn nausea FEN: NPO, LR @ 80mL/hr (x1 bag ordered) Code status: full code DVT ppx: not indicated Held home meds: none Consults: ortho Dispo: med/surg Ortho will take over as primary role in the hospital (2) Foot fracture, right: (3) Fall: Admission and Anticipated Discharge Date Admission Date: January 06, 2022 Supervising Physician Co-Signing Physician Notes I personally examined the patient and verified all villegas points of history and exam, discussed case, and agree with decision making with Dr Anders Pain was very uncontrolled earlier. With a milligram of Dilaudid she still notices it but it is better than it was Vitals noted, in general she is awake and alert pleasant no distress. HEENT normocephalic atraumatic mucous membranes moist. Ankle wrapped. Skin without rashes, pallor, icterus. Fall/ankle fracture/dislocationpain control, management otherwise per orthopedics. Given that she is medically otherwise well and uncomplicated, orthopedic surgery graciously offered to assume primary role. We will certainly be available as a media consultant if the need arises. Thank you Subjective Patient was seen bedside with wraps around her legs. She is in a great deal of pain in her legs. Review of Systems Review of Systems: All systems reviewed & are unremarkable except as noted in HPI & below Physical Exam Constitutional: well developed, + acute distress and average body habitus Eyes: PERRL, conjunctivae normal, anicteric sclerae ENMT: external ear and nose normal, oropharynx normal Neck: trachea midline, no thyromegaly Respiratory: normal respiratory effort, lungs clear to auscultation Cardiovascular: RRR, no murmur, no edema Gastrointestinal (Abdomen): normal bowel sounds, soft, nontender, no hepatosplenomegaly Musculoskeletal: Ankles wrapped Skin: no rashes, warm and dry Results & Data Results & Data ([facility]) Vital Signs (Past 12 Hours) Vital Signs Temp Pulse Pulse Pulse Resp BP BP 01/06/22 04:04 37.5 C 83 18 114/79 01/06/22 02:21 123/78 01/06/22 02:00 123/82 01/06/22 00:00 127/93 01/05/22 22:48 99 H 18 122/74 01/05/22 20:51 94 H 18 125/79 01/05/22 20:30 106 H 18 135/91 01/05/22 20:25 102 H 18 138/86 01/05/22 20:20 110 H 18 131/86 01/05/22 20:15 114 H 18 133/80 01/05/22 20:10 126 H 16 137/81 01/05/22 20:05 129 H 16 141/83 H 01/05/22 20:00 117 H 18 130/89 Pulse Ox O2 Del Method O2 Flow Rate 01/06/22 04:04 99 Room Air 01/06/22 02:21 01/06/22 02:00 01/06/22 00:00 01/05/22 22:48 100 Room Air 01/05/22 20:51 98 Room Air 01/05/22 20:30 100 Room Air 01/05/22 20:25 98 Room Air 01/05/22 20:20 100 Room Air 01/05/22 20:15 100 Room Air 01/05/22 20:10 100 Nasal Cannula 3 01/05/22 20:05 100 Nasal Cannula 6 01/05/22 20:00 100 Nasal Cannula 6 (1) Closed fracture of ankle, trimalleolar Encounter type: initial encounter Laterality: left Qualified Code(s): S82.852A - Displaced trimalleolar fracture of left lower leg, initial encounter for closed fracture (2) Foot fracture, right Encounter type: initial encounter Fracture type: closed Qualified Code(s): S92.901A - Unspecified fracture of right foot, initial encounter for closed fracture (3) Fall Encounter type: initial encounter Qualified Code(s): W19.XXXA - Unspecified fall, initial encounter
--- NOTE | 2022-01-06 08:51 | CT Scan Report ---
CT SCAN OF THE RIGHT FOOT WITHOUT IV CONTRAST CLINICAL HISTORY: Fall. Right foot injury. COMPARISON STUDY: Radiographs of the right foot and ankle dated 01/05/2022. TECHNIQUE: CT scan of the right foot is performed from the ankle to the base of the foot. Images are reviewed in the axial, sagittal, and coronal planes. IV contrast was not administered for this examin ation. A dose lowering technique was utilized adhering to the principles of ALARA. CT DOSE: 196.45 mGy.cm FINDINGS: The skeletal structures are well mineralized. There is a mildly displaced avulsion fracture seen along the anterolateral aspect of the talar dome. This is best seen on axial image #39. The dis placed fragment measures up to 10 mm. There is also a comminuted fracture with displaced fragments in volving the lateral cortex of the subtalar calcaneus. Overlying soft tissue edema is noted. There is a subtle nondisplaced fracture of the sustentaculum nae, best seen on coronal image #24. No addition al acute fracture is identified. The distal tibia and fibula appear intact. There is mild varus angul ation at the tibiotalar articulation. There is no clear evidence of ankle dislocation. There is an an kle joint effusion. Normal fat is maintained within the sinus tarsi. The Achilles tendon is intact as visualized. The regional musculature is grossly normal. No large hematoma is identified. IMPRESSION: 1. Displaced avulsion fracture along the anterolateral aspect of the talar dome. 2. There is a comminuted fracture involving the lateral cortex of the subtalar calcaneus with displac ed fragments. 3. Subtle nondisplaced fracture of the sustentaculum nae. 4. There is mild varus angulation at the tibiotalar articulation. ACT 112: Negative or not required by law. Dictated: 01/06/2022 8:21 AM Transcribed: 01/06/2022 8:46 AM Nat [id number] BRENNA_Igor Electronically signed by: Ryder Garcia M.D. 01/06/2022 8:49 AM
[2022-01-06 09:58] LABS: Basophils # (auto) 0.04 K/uL (0-0.2); Basophils % (auto) 0.4 %; Eosinophils # (auto) 0.02 K/uL (0-0.50); Eosinophils % (auto) 0.2 %; Hematocrit (blood only) 35.2 % (34.1-44.9); Hemoglobin 11.5 g/dl (12.0-16.0); Immature Granulocytes # (auto) 0.02 K/uL (0.00-0.02); Immature Granulocytes % (auto) 0.2 %; Lymphocytes # (auto) 3.05 K/uL (1.2-3.4); Lymphocytes % (auto) 34.2 %; Mean Corpuscular Hemoglobin 29.9 pg (25.0-34.0); Mean Corpuscular Hgb Conc 32.7 g/dL (32.0-36.0); Mean Corpuscular Volume 91.7 fL (80.0-100.0); Mean Platelet Volume 10.5 fL (9.4-12.3); Monocytes # (auto) 0.87 K/uL (0.24-0.82); Monocytes % (auto) 9.7 %; Neutrophils # (auto) 4.93 K/uL (1.4-6.5); Neutrophils % (auto) 55.3 %; Platelet Count 214 K/uL (130-400); RDW Coefficient of Variation 13.2 % (11.5-14.5); RDW Standard Deviation 44.5 fL (36.4-46.3); Red Blood Count 3.84 M/uL (3.93-5.22); White Blood Count 8.93 K/ul (4.8-10.8)
[2022-01-06 10:25] LABS: BUN Creatinine Ratio 13.3 (10-20); Calcium 8.7 mg/dl (8.5-10.1); Creatinine Clr Calc Pharmacy 104.3 ml/min; Est GFR (African American) 109.7 ml/min; Est GFR (Non-African American) 94.6 ml/min; Potassium 3.5 mmol/L (3.5-5.1)
[2022-01-06] MEDS ORDERED: HYDROmorphone INJ 1 MG/ML SYRINGE IV STA (10:28)
[2022-01-06] MEDS ORDERED: HYDROmorphone INJ 1 MG/ML SYRINGE ONE (10:33)
[2022-01-06] MEDS ORDERED: KETOROLAC 30 MG/ML VIAL IV PRN (10:37)
--- NOTE | 2022-01-06 11:14 | Orthopedic Consultation ---
Date of Consultation January 06, 2022 Assessment & Plan (1) Closed fracture of ankle, trimalleolar: Patient was educated regarding today's findings. Conservative care measures were discussed. She was made n.p.o. last night in anticipation of surgical intervention today. She will be allowed to eat today, as surgery is not planned for today. She will need an ORIF of the left ankle. This was discussed with the patient and she is aware. Possibility of further surgery on the right talus was also discussed. She is awaiting Dr. Ayala's opinion regarding fixation. Continue with ice and immobilization as well as elevation. Continue IV pain control. Continue DVT prophylaxis. Importance of nonweightbearing was discussed with the patient. (2) Foot fracture, right: As above. History of Present Illness Reason for Consultation: Left ankle fracture, right foot fracture Attending Physician: Antonio Scott DO History of Present Illness This 31-year-old female is seen in room 378, for evaluation of her right foot and left ankle. Patient was rockclimbing last night and was not harnessed. She fell approximately 8 feet and landed on her feet. She had immediate onset of pain. She was unable to bear weight. Deformity was noted over left ankle. Patient was seen in the ED last night and found to have a left ankle fracture and right foot fracture. She was given sedation and the ankle fracture was reduced. No prior history of ankle or foot injury. Pain is currently 6/10. She denies any numbness or tingling. No other areas of injury that she is aware of. Allergies Allergy/AdvReac Type Severity Reaction Status Date / Time Penicillins Allergy Intermediate HIVES A Verified 01/05/22 19:59 CHILD Home Medications Medication Instructions Recorded Confirmed Type cholecalciferol (vitamin D3) 25 25 mcg PO DAILY 01/05/22 01/05/22 History mcg (1,000 unit) capsule (Vitamin D3) vitamin B complex 1 tab PO DAILY 01/05/22 01/05/22 History Patient History Medical History (Updated 01/06/22 @ 11:05 by Isai Cramer PA-C) Tubal ectopic Surgical History (Updated 01/06/22 @ 11:06 by Isai Cramer PA-C) History of eye surgery History of laparoscopy Family History (Updated 01/06/22 @ 11:07 by Isai Cramer PA-C) Other Breast cancer Hypertension Thyroid disease Social History (Updated 01/06/22 @ 11:07 by Isai Cramer PA-C) Smoking Status: Former smoker Second Hand Exposure: No; Do You Dip or Chew Tobacco: No; Tobacco Cessation Education Requested by Patient: No Hx Alcohol Use: Yes Hx Substance Use: No Preferred Language: Hebrew Communication Ability: Effective Hearing Ability: Normal Cargo Mate Required: No Beliefs That Will Affect Care: None marital status: Single Current Living Situation: Significant Other current occupational status: employed Other Information That Helps Us Care for You: No Feels Safe at Home: Yes Safety Concerns: Feels Safe At This Time Assistive Devices: None Review of Systems Review of Systems: All systems reviewed & are unremarkable except as noted in HPI & below Physical Exam Physical Exam: General: Well-developed, well-nourished, young white female, in obvious discomfort. No acute distress. Laying in bed. Alert and oriented. Conversive. Skin: Warm dry with good turgor. No rashes. Mild edema is present in her toes. Splints are in place on both lower extremities. Multiple tattoos. Musculoskeletal: Patient has intact motor function to the hips and knees. She does not like moving the knees as it causes discomfort in her left ankle and right foot. Intact motor function of the toes on both feet. Splints were not taken down at this time. This will be done later by Dr. Ayala. Neurologic: Gross sensation is intact across both lower extremities by soft touch at the knees and toes. Capillary refill is equal for the toes of both feet. Results & Data ([facility]) Vital Signs (Past 12 Hours) Vital Signs Temp Pulse Resp BP BP BP Pulse Ox 01/06/22 08:08 36.9 C 81 16 104/70 97 01/06/22 04:04 37.5 C 83 18 114/79 99 01/06/22 02:21 123/78 01/06/22 02:00 123/82 01/06/22 00:00 127/93 O2 Del Method 01/06/22 08:08 Room Air 01/06/22 04:04 Room Air 01/06/22 02:21 01/06/22 02:00 01/06/22 00:00 Diagnostic Findings Radiographic imaging previously performed, including x-ray of both ankles and the right foot as well as CT imaging of the foot and MRI of the ankle, was reviewed. Patient has a trimalleolar left ankle fracture with very good reduction. Posterior malleolus fragment is very small and is likely not amenable to hardware placement. Right foot films show a fracture of the talar dome as well as of the subtalar calcaneus. This is comminuted. (1) Closed fracture of ankle, trimalleolar Encounter type: initial encounter Laterality: left Qualified Code(s): S82.852A - Displaced trimalleolar fracture of left lower leg, initial encounter for closed fracture (2) Foot fracture, right Encounter type: initial encounter Fracture type: closed Qualified Code(s): S92.901A - Unspecified fracture of right foot, initial encounter for closed fracture
--- NOTE | 2022-01-06 13:17 | Magnetic Resonance Report ---
MRI OF THE RIGHT ANKLE WITHOUT IV CONTRAST CLINICAL HISTORY: Foot and ankle fractures. Instability. COMPARISON STUDY: Radiographs of the right ankle dated 01/05/2022. CT of the right foot dated 01/06/2022. TECHNIQUE: MRI of the right ankle was performed utilizing various T1 and T2-weighted sequences in the axial, sagittal, and coronal planes. IV contrast was not administered for this examination. FINDINGS: Again seen is a displaced avulsion fracture/osteochondral injury along the anterolateral aspect of th e talar dome. There is associated reactive marrow edema [?]displaced fragment measures at least 9 mm as seen on coronal image #15. There is also a comminuted fracture involving the lateral cortex of the subtalar calcaneus with displaced fragments and associated marrow edema. There is marrow edema from a subtle nondisplaced fracture of the sustentaculum nae. The fracture was much better visualized by CT. There is marrow edema without clear fracture identified involving the medial body of the talus, l ikely representing contusion. There is mild contusion at the base of the cuboid. Mild varus angulatio n is noted at the ankle mortise. No ankle dislocation is seen. There is trace ankle joint effusion. T here is tearing of the deltoid and calcaneofibular ligaments. There has been rupture of the anterior talofibular ligament. The anterior tibiofibular ligament appears intact. The Achilles tendon is bert l in morphology and signal intensity. The anterior, posterior, and peroneal tendons are intact. There is mild tenosynovitis of the tibialis posterior tendon and the peroneal tendons. Significant soft ti ssue edema is present around the ankle, greatest along the lateral aspect of the ankle and hindfoot. IMPRESSION: 1. Displaced avulsion fracture/osteochondral injury along the anterolateral aspect of the talar dome. 2. Comminuted fracture involving the lateral cortex of the subtalar calcaneus with displaced fragment s. 3. Subtle nondisplaced fracture of the sustentaculum nae. 4. There is significant marrow edema within the medial body of the talus without clear fracture ident ified. 5. There is tearing of the deltoid, calcaneofibular, and anterior talofibular ligaments. 6. There is mild varus angulation of the tibiotalar articulation. No ankle dislocation is seen. Dictated: 01/06/2022 11:18 AM Transcribed: 01/06/2022 12:58 PM Jasmina [id number] BRENNA_May Electronically signed by: Ryder Garcia M.D. 01/06/2022 1:16 PM
[2022-01-06] MEDS ORDERED: VANCOMYCIN CONSULT ACTIVE PRN (15:10)
[2022-01-06] MEDS: HYDROmorphone INJ 1 MG/ML SYRINGE IV PRN ×2 (16:41→21:52)
[2022-01-06] MEDS: KETOROLAC 30 MG/ML VIAL IV SCH (17:38)
--- NOTE | 2022-01-06 18:22 | Billing Data ---
Date of Service January 06, 2022 Coding Level of Care Code 58729 Subseq Hosp Care Lvl 2
--- NOTE | 2022-01-06 18:22 | Billing Data ---
Date of Service January 06, 2022 Coding Level of Care Code 98758 Subseq Obs Care Lvl 2 Comment disregard [id number], entered in error, thanks
[2022-01-07] MEDS: KETOROLAC 30 MG/ML VIAL IV SCH ×5 (00:33→23:33)
--- NOTE | 2022-01-07 03:59 | Billing Data ---
Date of Service January 07, 2022 Coding Level of Care Code INT OBSERVATION CARE 50M LVL 2
[2022-01-07] MEDS: ACETAMINOPHEN 500 MG TAB PO SCH ×3 (04:29→20:15)
[2022-01-07] MEDS: HYDROmorphone INJ 1 MG/ML SYRINGE IV PRN ×2 (04:29→08:37)
[2022-01-07] MEDS: ONDANSETRON INJ 2 MG/ML 2 ML VIAL IV PRN ×2 (04:35→08:37)
[2022-01-07] MEDS ORDERED: VANCOMYCIN HCL 1,500 MG in SODIUM CHLORIDE 0.9% 500 ML IV ONE (06:00)
--- NOTE | 2022-01-07 09:34 | Orthopedic Progress Note ---
Date of Service January 07, 2022 Assessment & Plan (1) Closed fracture of ankle, trimalleolar: Plan: Patient is NPO. She will receive surgery on both of her ankles later today. Preoperative Vancomycin has been ordered. Admission and Anticipated Discharge Date Admission Date: January 06, 2022 Subjective Patient is seen in her room this morning. She states she is doing fine at this time. Pain is controlled. She did have some Dilaudid overnight which caused vomiting. She is currently not nauseated. She is starting to get anxious due to her pending surgery later today. No other complaints. Physical Exam Physical Exam: General: Well-developed, well-nourished, young white female, in no acute distress. She was actually sleeping when I walked in the room. Awakens easily. Splints were not removed. Skin: Warm and dry with good turgor. No rashes. She has splints in place on both ankles. Musculoskeletal: Patient has intact motor function of the toes of each foot. Range of motion of the ankles was not attempted. Neurologic: Gross sensation is intact across the toes of both feet by soft touch. Toes are warm. Capillary refill is equal for each of the digits. Results & Data ([facility]) Vital Signs (Past 12 Hours) Vital Signs Temp Pulse Resp BP Pulse Ox O2 Del Method 01/07/22 07:50 37.1 C 65 16 111/71 98 Room Air 01/06/22 22:01 37.0 C 79 18 113/75 98 Room Air (1) Closed fracture of ankle, trimalleolar Encounter type: initial encounter Laterality: left Qualified Code(s): S82.852A - Displaced trimalleolar fracture of left lower leg, initial encounter for closed fracture
[2022-01-07] MEDS ORDERED: fentaNYL citrate 100 MCG/2 ML VIAL IV PRN (11:50)
[2022-01-07] MEDS ORDERED: ePHEDrine sulfate 50 MG/ML AMP IV PRN (11:50)
[2022-01-07] MEDS ORDERED: ATROPINE SULFATE 0.1 MG/ML 10ML SYR IV PRN (11:50)
[2022-01-07] MEDS ORDERED: ONDANSETRON INJ 2 MG/ML 2 ML VIAL IV PRN ×2 (11:50→17:29)
--- NOTE | 2022-01-07 11:50 | Anesthesiology Consultation ---
Date of Service January 07, 2022 Assessment & Plan Chart Review Chart Review: Acceptable Risk for Surgery and Patient NOT seen in Pre Admission Testing Consults Requested none History Surgery Operation Date: 01/07/22 11:40 Proposed Procedures p Left Open Reduction Internal Fixation Bimalleolar Fracture, Open Reduction Internal Fixation versus Excision Left Talus Fracture - Dalton Ayala MD Height/Weight Height: 5 ft 7 in Weight: 74.3 kg Allergies Allergy/AdvReac Type Severity Reaction Status Date / Time Penicillins Allergy Intermediate HIVES A Verified 01/05/22 19:59 CHILD Medications Home Medications Medication Instructions Recorded Confirmed Last Taken cholecalciferol (vitamin D3) 25 25 mcg PO DAILY 01/05/22 01/05/22 01/05/22 mcg (1,000 unit) capsule (Vitamin D3) vitamin B complex 1 tab PO DAILY 01/05/22 01/05/22 01/05/22 Active Medications Generic Name Dose Route Start Last Admin Trade Name Freq PRN Reason Stop Dose Admin Acetaminophen 1,000 mg 01/06/22 04:00 01/07/22 04:29 Acetaminophen 500 Mg Tab PO 02/05/22 03:59 1,000 mg Q8H [place] Administration Hydromorphone HCl 1 mg 01/06/22 10:35 01/07/22 08:37 Hydromorphone Inj 1 Mg/Ml Syringe IV 01/20/22 10:34 1 mg Q4H PRN Administration Pain Ketorolac Tromethamine 30 mg 01/06/22 18:00 01/07/22 04:40 Ketorolac 30 Mg/Ml Vial IV 01/11/22 17:59 30 mg Q6H [place] Administration Ondansetron HCl 4 mg 01/06/22 02:39 01/07/22 08:37 Ondansetron Inj 2 Mg/Ml 2 Ml Vial IV 02/05/22 02:38 4 mg Q6H PRN Administration Nausea NPO Date Last Intake of Fluids: 01/06/22 Time Last Intake of Fluids: 23:59 Date Last Intake of Solids: 01/06/22 Time Last Intake of Solids: 18:30 Past Medical History Medical History Tubal ectopic Past Family History Family History Other Breast cancer Hypertension Thyroid disease Past Surgical History Surgical History History of eye surgery History of laparoscopy Social History Smoking Status: Former smoker Do You Dip or Chew Tobacco: No Hx Alcohol Use: Yes alcohol intake frequency: holidays/special occasions only Hx Substance Use: No substance use type: does not use Physical Exam Vital Signs Last Vital Signs Temp 98.4 F 01/07/22 11:11 Pulse 85 01/07/22 11:11 Resp 16 01/07/22 11:11 BP 112/62 01/07/22 11:11 Pulse Ox 99 01/07/22 11:11 O2 Del Method 01/07/22 11:11 O2 Flow Rate 3 01/05/22 20:10 Testing Laboratory Results 01/06/22 09:28 01/06/22 09:28
[2022-01-07] MEDS ORDERED: ROPIVACAINE 0.5% 5 MG/ML 30 ML VIAL ONE ×2 (11:55→12:22)
[2022-01-07] MEDS ORDERED: MIDAZOLAM HCL 1 MG/ML 2ML VIAL ONE (12:05)
--- NOTE | 2022-01-07 12:09 | History & Physical Bridge Note ---
Date of Service January 07, 2022 History & Physical Bridge Note I have examined the patient, reviewed the History & Physical and in the interval since the performance of the History & Physical I have noted the following changes of clinical significance: no changes noted Both ankles mild swelling. Minimal bruising on the right. Operative sites marked. No blistering or severe swelling. Acceptable to proceed with surgery.
[2022-01-07] MEDS ORDERED: ceFAZolin 330 MG/ML 1 GM VIAL ONE ×2 (13:03→15:07)
[2022-01-07] MEDS ORDERED: PROPOFOL IV EMULSION 10 MG/ML 20 ML VIAL IV ONE (13:07)
[2022-01-07] MEDS ORDERED: LIDOCAINE 2% MPF LOCAL 5 ML VIAL INFIL ONE (13:07)
[2022-01-07] MEDS ORDERED: DEXAMETHASONE SOD INJ 4 MG/ML VIAL ONE (13:07)
[2022-01-07] MEDS ORDERED: ONDANSETRON INJ 2 MG/ML 2 ML VIAL ONE (13:07)
[2022-01-07] MEDS ORDERED: ROCURONIUM BROMIDE 10 MG/ML 5 ML VIAL IV ONE ×9 (13:22→14:58)
[2022-01-07] MEDS ORDERED: ceFAZolin 2000MG 2,000 MG/15 ML SYR IV ONE (13:58)
[2022-01-07] MEDS: LIDOCAINE 1% LOCAL 20 ML VIAL ONE ×2 (14:41→16:28)
[2022-01-07] MEDS: BUPIVACAINE 0.5 % 5 MG/1 ML MPF 30ML VIAL ONE ×2 (14:41→16:29)
[2022-01-07] MEDS ORDERED: HYDROmorphone INJ 2 MG/ML SYR/VIAL ONE (14:56)
--- NOTE | 2022-01-07 15:06 | Fluoroscopy Report ---
FL ankle LT min 3V RTN HISTORY: 31 years-old Female LT ORIF BIMALLEOLAR FX acute fracture of the left ankle COMPARISON: Radiographs 01/05/2022 TECHNIQUE: 3 spot fluoroscopic images of the left ankle were obtained utilizing 18.5 seconds fluorosc opy time FINDINGS: Lateral plate and screw fusion fixates the acute lateral malleolar fracture. There is a cannulated sc rew and K wire present traversing the acute medial malleolar fracture. There is improved alignment of the medial and lateral malleolar fractures with unchanged displaced posterior malleolar fracture. Ex pected postoperative soft tissue swelling with deep tissue air. IMPRESSION: Fluoroscopic assistance as above. ACT 112: Negative or not required by law. The above report was generated using voice recognition software. It may contain grammatical, syntax o r spelling errors. Electronically signed by: Cuauhtemoc Leal M.D. 01/07/2022 3:04 PM
[2022-01-07] MEDS ORDERED: ceFAZolin 1000MG 1,000 MG/7.5 ML SYR IV ONE (15:17)
[2022-01-07] MEDS ORDERED: KETOROLAC 30 MG/ML VIAL ONE (16:15)
[2022-01-07] MEDS ORDERED: NEOSTIGMINE METHYLSULFATE 1 MG/ML 10ML VIAL ONE (16:22)
[2022-01-07] MEDS ORDERED: GLYCOPYRROLATE 0.2 MG/ML VIAL ONE (16:22)
--- NOTE | 2022-01-07 16:48 | Operative Report ---
Post Operative Report Pre & Post Diagnosis Operation Date: 01/07/22 11:40 Pre-Op Diagnosis: Left closed fracture of ankle, trimalleolar Right foot fracture Post-Op Diagnosis: Left closed fracture of ankle, trimalleolar Right foot fracture I identified the patient and participated in the time-out.: Yes Procedure Operation Date: 01/07/22 11:40 Actual Procedures p Open Reduction Internal Fixation Left Ankle Fracture, Open Reduction Internal Fixation Right Talus Osteochondral Fracture, Right Ankle Lateral Ligament Repair - Dalton Ayala MD Surgeon Dalton Ayala M.D. Receivable Manager Kim Kraft PA-C Estimated Blood Loss 15 Findings Consistent with Post-Op Diagnosis Specimens None Anesthesia Type General Regional Description of Procedure Patient was taken to the operating room, placed under general anesthesia. Time out performed, prepped and draped in routine sterile fashion. I was present during the entire case, please see Dr. Ayala's operative report for further detail. Patient was awakened and taken to the recovery room in stable condition. I attest to the content of the Intraoperative Record and any orders documented therein. Any exceptions are noted below.
--- NOTE | 2022-01-07 17:02 | Fluoroscopy Report ---
FL ankle RT min 3V RTN CLINICAL HISTORY: RIGHT ANKLE COMPARISON STUDY: MRI of the right ankle and CT of the right foot January 06, 2022. FLUOROSCOPY TIME: 3 seconds. FLUOROSCOPIC IMAGES: 5 FINDINGS: Fluoroscopy was provided during open reduction and internal fixation of a right talar osteo chondral fracture and right ankle lateral ligament repair. Hardware is intact. There are no unexpecte d radiopaque foreign bodies. IMPRESSION: Fluoroscopy provided during right ankle surgery, as above. ACT 112: Negative or not required by law. Electronically signed by: Cruz Ellsworth M.D. 01/07/2022 5:00 PM
--- NOTE | 2022-01-07 17:04 | Operative Report ---
Post Operative Report Pre & Post Diagnosis Operation Date: 01/07/22 11:40 Pre-Op Diagnosis: Left closed fracture of ankle, trimalleolar Right ankle lateral sprain with osteochondral fracture of the talus Post-Op Diagnosis: same I identified the patient and participated in the time-out.: Yes Procedure Operation Date: 01/07/22 11:40 Actual Procedures p Open Reduction Internal Fixation Left Ankle Fracture, medial and lateral malleoli, Open Reduction Internal Fixation Right Talus Osteochondral Fracture, Right Ankle Lateral Ligament Repair - Dalton Ayala MD Surgeon Dalton Ayala MD Ancillary Services Manager Kim Kraft no resident or fellow available Estimated Blood Loss 15 Findings Consistent with Post-Op Diagnosis Specimens None Anesthesia Type General Regional Complications none Disposition Accompanied Patient To Recovery: No Disposition: Recovery Room Indications The patient is 31 years old. She fell rockclimbing. Injured both ankles. She has a trimalleolar fracture of the left ankle. The posterior fracture is minor. She also has what I suspect is a severe inversion injury to the right ankle which has resulted in a nondisplaced fracture of the calcaneus. Nonstructural. An acute osteochondral fracture of the lateral shoulder of the talus and disruption of the lateral ankle ligament complex. Treatment options risks benefits were discussed and she elected to proceed with operative intervention which was recommended. Description of Procedure Informed consent obtained. Patient identified. She identified the operative site as both ankles which are marked with my initials. Preop surgical timeout performed. Preop dose of IV antibiotics given. She was taken to the operating room positioned supine on the OR table. The anesthetic was administered. The legs were prescribed and prepped and draped in the usual sterile fashion. Nonsterile tourniquets were applied about both thighs. The examination revealed mild swelling bilaterally. She had a positive ankle drawer on the right with a positive inversion sulcus test. The left ankle was unstable. Skin intact. DVT prophylaxis with Lovenox postoperatively. Fluoroscopic guidance was utilized throughout the procedure. She had a peripheral nerve block on the left. On the right local anesthetic was injected into the skin at the conclusion of the procedure. The left limb was operated on first. The limb was exsanguinated with the Esmarch tourniquet inflated 250 mmHg. A 12 cm lateral incision was made over the distal fibula. Blunt dissection was performed down to the subcutaneous tissues. The superficial peroneal nerve was identified in 1 of its branches was coursing across the area which ended up to be the fourth hole from the top. This was going across the fibula into the posterior skin flap. It was preserved. Subperiosteal exposure of the fracture was performed. The fracture was opened and hematoma was evacuated. Some comminution anterior was noted and in particular there appeared to be some comminution in the subchondral region of the medial wall of the fibula. I was able to obtain an anatomic reduction and neutralized this with a 3.5 mm bicortical lag screw which was adjusted for length as necessary. She had a purported reaction to jewelry. Because of this titanium implants were utilized. This was then neutralized with a 8 hole one third tubular plate. 1 unicortical cancellous screw distally. One bicortical screw proximal. 2 locking screws proximal and distal. Attention was turned medially where a 6 cm incision was made. Blunt dissection down through the subcutaneous tissues. The saphenous neurovascular structures were retracted anteriorly. There was substantial disruption of the medial periosteum. Posterior tib tendon identified and found to be unremarkable. The malleolar fragment was small and located anterior. The ankle joint was opened and found to be unremarkable. The ankle joint was irrigated and the fracture site was prepared. It was then anatomically reduced and held so with a tenaculum while 2 guidewires were inserted. Due to the small size of the fragment I inserted 1 screw posteriorly. A 44 mm 4.0 titanium cannulated screw. The anterior pin was bent over and impacted into the bone. The posterior fracture was minor and did not need fixation. Tourniquet was let down. Meticulous hemostasis. Copious irrigation of the wounds. Syndesmosis was stressed and found to be stable. The periosteum was reapproximated medially and laterally using 0 Vicryl. The skin was then closed with 3-0 Vicryl and rolando on the skin. This leg was then cleaned dressed with gauze and wrapped with an Meño. At the conclusion the operation Xeroform 4 x 4's ABD soft wrap and a posterior splint with ankle neutral and an Meño wrap were applied. Attention was turned to the right leg. The limb was exsanguinated the Esmarch tourniquet plated 250 mmHg. About a 8 cm longitudinal incision was made just in front of the fibula. This was made over the palpable border of the talus. Blunt dissection was performed down to the subcutaneous tissue. A branch of the superficial peroneal nerve was identified and retracted anteriorly and protected. The peroneus tertius tendon was identified and elevated up off of the joint capsule. I identified hemorrhage distally. I was looking more towards the talus which is where I thought the ligaments were disrupted based on the MRI however turns out that it was more of a mid substance tear. I utilized this rent distally in the ATFL and divide the capsule proximally taking care to identify preserve and protected the anterior inferior tibiofibular ligaments. The talus was thus exposed and a blunt retractor was inserted anteriorly. With plantarflexion and inversion the talus fracture was identified. There really was not much in the way of hemorrhage in the ankle joint however the fracture fragment was unstable and it indeed was acute. It was involving the shoulder of the talus by a couple millimeters. It was about 15 mm anterior to posterior and about 10 to 12 mm medial to lateral. It was attached posteriorly and I left it so. It was displaced about a millimeter and I went ahead and reduced and held it with a dental pick. 2 guidewires were inserted for the Synthes 2.0 headless compression screws. These were then over drilled to a depth of about 16 mm and 2 screws 2.0 mm in diameter and 12 mm in length were inserted. The fragment was then probably only about 3 mm or so. Care was taken to bury the heads beneath the surface of the cartilage but not so deep that fixation was lost. Fixing this caused the cartilage to buckle on the medial portion of the fragment which I trimmed a millimeter or 2 of that off. The fracture fragment was stable. Fluoroscopic images were obtained showing good positioning. Tourniquet let down. Meticulous hemostasis. Then went ahead and repaired the lateral ankle ligaments using horizontal mattress sutures side to side repair of the disrupted tendon tissue. When doing so there was no anterior pressure on the ankle. The ankle was held in neutral neutral dorsiflexion with slight eversion. 4 stitches were applied and then this was oversewn with 0 Vicryl. Skin then closed with 4-0 nylon. Local anesthetic injected. Leg cleaned with wet and dry sponges. Soft sterile dressing Xeroform 4 x 4's ABD soft wrap and a posterior splint with ankle neutral. Patient awakened from anesthesia without difficulty taken to the recovery room in stable condition. There were no specimens or complications counts were correct and blood loss is estimated to be 15 cc. At the conclusion the operation spoke the patient's boyfriend and discussed with him my findings and recommendations. She will be nonweightbearing for at least 4 to 6 weeks after surgery. She will do physical therapy. We will work on transfer training. I attest to the content of the Intraoperative Record and any orders documented therein. Any exceptions are noted below.
[2022-01-07] MEDS ORDERED: HYDROmorphone INJ 1 MG/ML SYRINGE IV PRN (17:29)
[2022-01-07] MEDS ORDERED: METOCLOPRAMIDE HCL INJ 5 MG/ML 2 ML VIAL IV PRN (17:29)
[2022-01-07] MEDS ORDERED: NALOXONE HCL 0.4 MG/1 ML VIAL/CARP IV PRN (17:29)
[2022-01-07] MEDS ORDERED: diphenhydrAMINE 50 MG/ML VIAL IV PRN (17:29)
[2022-01-07] MEDS ORDERED: MAGNESIUM HYDROXIDE SUSP 30 ML UDC PO PRN (17:29)
[2022-01-07] MEDS ORDERED: bisacodyL 10 MG SUPP PR PRN (17:29)
[2022-01-07] MEDS: SODIUM CHLORIDE 0.9% 1000ML 1,000 ML IV SCH (17:40)
--- NOTE | 2022-01-07 18:06 | Anesthesiology Progress Note ---
Date of Service January 07, 2022 Anesthesia Post Procedure Vital Signs Vital Signs: Temp Pulse Pulse Resp BP BP Pulse Ox 01/07/22 17:29 98.6 F 82 17 113/76 100 01/07/22 17:15 98.2 F 87 14 119/74 98 01/07/22 17:05 76 13 111/67 93 01/07/22 16:55 78 13 117/69 94 01/07/22 16:48 98.2 F 101 H 28 H 112/97 100 01/07/22 11:11 98.4 F 85 16 112/62 99 01/07/22 07:50 98.8 F 65 16 111/71 98 01/06/22 22:01 98.6 F 79 18 113/75 98 O2 Del Method 01/07/22 17:29 Room Air 01/07/22 17:15 Room Air 01/07/22 17:05 Room Air 01/07/22 16:55 Room Air 01/07/22 16:48 Room Air 01/07/22 11:11 Room Air 01/07/22 07:50 Room Air 01/06/22 22:01 Room Air Pain Intensity Bilateral Ankle: Pain Intensity: 2 Transfer of Care Handoff Completed per policy Notes Mental Status: alert / awake / arousable and participated in evaluation Patient Amnestic to Procedure: Yes Nausea / Vomiting: adequately controlled Pain: adequately controlled Airway Patency, RR, SpO2: stable & adequate BP & HR: stable & adequate Hydration State: stable & adequate Anesthetic Complications: no major complications apparent and Pt Satisfied with anesthetic care
[2022-01-07] MEDS: DOCUSATE SODIUM 100 MG CAP PO SCH (20:15)
[2022-01-07] MEDS: SENNA 8.6 MG TAB PO SCH (20:16)
[2022-01-07] MEDS: traMADol HCL 50 MG TABLET PO PRN (22:31)
[2022-01-07] MEDS: ceFAZolin 2000MG 2,000 MG/15 ML SYR IV SCH (22:32)
[2022-01-07] MEDS: MELATONIN 3 MG TAB PO PRN (23:34)
[2022-01-08] MEDS: HYDROmorphone INJ 0.5 MG/0.5 ML SYR IV PRN ×2 (00:47→14:28)
[2022-01-08] MEDS: oxyCODONE HCL IR 5 MG TAB (IMMEDIATE RELEASE) PO PRN ×4 (04:05→21:39)
[2022-01-08] MEDS: ACETAMINOPHEN 500 MG TAB PO SCH ×3 (04:05→20:30)
[2022-01-08] MEDS: SODIUM CHLORIDE 0.9% 1000ML 1,000 ML IV SCH (04:06)
[2022-01-08] MEDS: KETOROLAC 30 MG/ML VIAL IV SCH ×3 (06:05→17:34)
[2022-01-08] MEDS: ceFAZolin 2000MG 2,000 MG/15 ML SYR IV SCH (06:07)
[2022-01-08] MEDS: ENOXAPARIN INJ 30 MG/0.3 ML SYR SQ SCH ×2 (06:07→17:35)
[2022-01-08] MEDS: DOCUSATE SODIUM 100 MG CAP PO SCH ×2 (07:55→20:30)
[2022-01-08] MEDS: MULTIVITAMIN TAB PO SCH (07:56)
[2022-01-08] MEDS: CHOLECALCIFEROL 1,000 UNITS 25 MCG TAB PO SCH (07:56)
[2022-01-08] MEDS: traMADol HCL 50 MG TABLET PO PRN ×2 (07:56→18:56)
--- NOTE | 2022-01-08 10:28 | Orthopedic Progress Note ---
Date of Service January 08, 2022 Assessment & Plan (1) Osteochondral defect of talus: Plan: Pt was advised on remaining NWB on Bilateral LE and splints are to stay in place. She was advised she will be working on transfer training w/ PT. PT was present as we were leaving. She will continue with Lovenox and pain medication as prescribed. she will be d/c to rehabilitation vs home pending PT. She will fu in the office as an outpt. I will discuss findings and POC with Dr. Ayala.i Present on Admission?: Yes (2) Closed fracture of ankle, trimalleolar: (3) S/P ORIF (open reduction internal fixation) fracture: Admission and Anticipated Discharge Date Admission Date: January 06, 2022 Subjective Pt is a 31 y.o female who is post op day #1, s/p Left ankle ORIF and s/p a right ORIF of the talus osteochondral fracture and ankle lateral ligament repair. She was seen this am sitting upright in bed. She is alert and oriented x3. She states she is doing well. She c/o pain in the ankles and the 100mg Tramadol has helped. She states she is able to feel her toes and denies any paresthesia. She has not been out of bed yet. She offers no concerns. She denies any CP, SOB, calf pain, discoloration of toes or numbness. Review of Systems Review of Systems: See HPI Physical Exam Physical Exam: Pt is alert &oriented x3. sitting upright in bed. Splints are in place on bilateral LEs. Skin over toes are normal in color and temperature. Neg for any skin irritation from splint. She is able to freely move the toes. She is able to flex and extend the knee w/o restriction. BLE are NVI. Results & Data ([facility]) Vital Signs (Past 12 Hours) Vital Signs Temp Pulse Pulse Resp BP BP Pulse Ox 01/08/22 07:39 36.7 C 75 16 110/74 99 01/08/22 03:22 36.9 C 85 16 94/59 L 97 01/07/22 22:43 37.3 C 92 H 22 117/75 100 O2 Del Method 01/08/22 07:39 Room Air 01/08/22 03:22 Room Air 01/07/22 22:43 Room Air Laboratory Results Lab Results 01/06/22 01/06/22 01/06/22 Range/Units 00:00 00:00 00:00 WBC 13.63 H (4.8-10.8) K/ul RBC 4.12 (3.93-5.22) M/uL Hgb 12.3 (12.0-16.0) g/dl Hct 37.3 (34.1-44.9) % MCV 90.5 (80.0-100.0) fL MCH 29.9 (25.0-34.0) pg MCHC 33.0 (32.0-36.0) g/dL RDW Std Deviation 42.9 (36.4-46.3) fL RDW Coeff of Kamille 13.0 (11.5-14.5) % Plt Count 246 (130-400) K/uL MPV 10.8 (9.4-12.3) fL Immature Gran % (Auto) 0.3 % Neut % (Auto) 67.3 % Lymph % (Auto) 25.8 % Ripley % (Auto) 6.2 % Eos % (Auto) 0.1 % Baso % (Auto) 0.3 % Neut # (Auto) 9.18 H (1.4-6.5) K/uL Lymph # (Auto) 3.51 H (1.2-3.4) K/uL Ripley # (Auto) 0.85 H (0.24-0.82) K/uL Eos # (Auto) 0.01 (0-0.50) K/uL Baso # (Auto) 0.04 (0-0.2) K/uL Immature Gran # (Auto) 0.04 H (0.00-0.02) K/uL Sodium 139 (136-145) mmol/L Potassium 3.6 (3.5-5.1) mmol/L Chloride 108 H (98-107) mmol/L Carbon Dioxide 21 (21-32) mmol/L Anion Gap 10 (3-11) BUN 9 (6-23) mg/dl Creatinine 0.82 (0.6-1.2) mg/dl Est Cr Clr Drug Dosing 105.6 ml/min Est GFR ( Amer) 111.3 ml/min Est GFR (Non-Af Amer) 96.0 ml/min BUN/Creatinine Ratio 11.0 (10-20) Glucose 98 (70-99(Fasting)) mg/dl Calcium 8.7 (8.5-10.1) mg/dl Total Bilirubin 0.6 (0.2-1.0) mg/dl AST 24 (13-39) U/L ALT 6 L (7-52) U/L Alkaline Phosphatase 46 (34-104) U/L Total Protein 6.4 (6.0-8.3) gm/dl Albumin 4.3 (3.4-5.0) gm/dl Globulin 2.1 L (2.5-4.0) gm/dl Albumin/Globulin Ratio 2.0 (0.9-2) Lipase 8 L (11-82) U/L HCG, Qual Negative (Negative) SARS-CoV-2, RNA, NAAT (NEGATIVE) 01/06/22 01/06/22 01/06/22 Range/Units 00:05 09:28 09:28 WBC 8.93 (4.8-10.8) K/ul RBC 3.84 L (3.93-5.22) M/uL Hgb 11.5 L (12.0-16.0) g/dl Hct 35.2 (34.1-44.9) % MCV 91.7 (80.0-100.0) fL MCH 29.9 (25.0-34.0) pg MCHC 32.7 (32.0-36.0) g/dL RDW Std Deviation 44.5 (36.4-46.3) fL RDW Coeff of Kamille 13.2 (11.5-14.5) % Plt Count 214 (130-400) K/uL MPV 10.5 (9.4-12.3) fL Immature Gran % (Auto) 0.2 % Neut % (Auto) 55.3 % Lymph % (Auto) 34.2 % Ripley % (Auto) 9.7 % Eos % (Auto) 0.2 % Baso % (Auto) 0.4 % Neut # (Auto) 4.93 (1.4-6.5) K/uL Lymph # (Auto) 3.05 (1.2-3.4) K/uL Ripley # (Auto) 0.87 H (0.24-0.82) K/uL Eos # (Auto) 0.02 (0-0.50) K/uL Baso # (Auto) 0.04 (0-0.2) K/uL Immature Gran # (Auto) 0.02 (0.00-0.02) K/uL Sodium 140 (136-145) mmol/L Potassium 3.5 (3.5-5.1) mmol/L Chloride 108 H (98-107) mmol/L Carbon Dioxide 27 (21-32) mmol/L Anion Gap 5 (3-11) BUN 11 (6-23) mg/dl Creatinine 0.83 (0.6-1.2) mg/dl Est Cr Clr Drug Dosing 104.3 ml/min Est GFR ( Amer) 109.7 ml/min Est GFR (Non-Af Amer) 94.6 ml/min BUN/Creatinine Ratio 13.3 (10-20) Glucose 93 (70-99(Fasting)) mg/dl Calcium 8.7 (8.5-10.1) mg/dl Total Bilirubin (0.2-1.0) mg/dl AST (13-39) U/L ALT (7-52) U/L Alkaline Phosphatase (34-104) U/L Total Protein (6.0-8.3) gm/dl Albumin (3.4-5.0) gm/dl Globulin (2.5-4.0) gm/dl Albumin/Globulin Ratio (0.9-2) Lipase (11-82) U/L HCG, Qual (Negative) SARS-CoV-2, RNA, NAAT NEGATIVE (NEGATIVE) (1) Closed fracture of ankle, trimalleolar Encounter type: initial encounter Laterality: left Qualified Code(s): S82.852A - Displaced trimalleolar fracture of left lower leg, initial encounter for closed fracture
--- NOTE | 2022-01-08 18:18 | Progress Notes ---
DATE OF SERVICE: 01/08/2022. The patient is resting comfortably in bed. Her pain is well controlled. She has had PT and OT. She is afebrile. Her vital signs are stable. Dressings are clean and dry. She has some tingling in th e left foot, normal sensation in the right. She can wiggle her toes. Swelling is mild. Capillary r efill less than 2 seconds. Findings related to the surgery were discussed. We talked about the post operative plan. For now, she will be nonweightbearing on both lower extremities and she will remain in the splints. We will get her set up a followup appointment in about 10-14 days postop for wound c heck, suture removal, and initiation of physical therapy. She will have rehabilitation program consi stent with a lateral ligament repair on the right. She will need to remain nonweightbearing bilatera lly. When she is safe for transfers, she can be discharged home. I signed a prescription for a whee lchair. For the time being, we are going to do the Lovenox for DVT prophylaxis. I will be out start ing tomorrow, and Dr. Hayward will look in on her. Job ID: [id number]
--- NOTE | 2022-01-08 19:31 | Progress Notes ---
DATE OF SERVICE: 01/08/2022 Eam is resting comfortably in bed. Her pain is well controlled. She is ____. She is afebrile. Her vitals are stable. Dressings are clean and dry. She has some tingling in the left foot. Kenyetta l sensation in the right. She can wiggle her toes. Swelling is mild. Capillary refill less than 2 seconds. Findings related to surgery were discussed. We talked about the postoperative plan. For now, she wi ll be nonweightbearing on both lower extremities and she will remain in a splint. We will get her se t up for a followup appointment in about 10-14 days postop for wound check, suture removal, and initi ation of physical therapy. She will have her rehab program consistent with a lateral ligament repair on the right. She will need to remain nonweightbearing bilaterally. When she is safe for transfers , she can be discharged home. I signed a prescription for a wheelchair. For the time being, we are going to do the Lovenox for DVT prophylaxis. I will be out starting tomorrow and Dr. Mainor miner look in on her. Job ID: [id number]
[2022-01-08] MEDS: SENNA 8.6 MG TAB PO SCH (20:30)
[2022-01-09] MEDS: MELATONIN 3 MG TAB PO PRN (00:06)
[2022-01-09] MEDS: traMADol HCL 50 MG TABLET PO PRN (00:06)
[2022-01-09] MEDS: KETOROLAC 30 MG/ML VIAL IV SCH ×3 (00:09→12:24)
[2022-01-09] MEDS: ACETAMINOPHEN 500 MG TAB PO SCH ×2 (03:46→12:24)
[2022-01-09] MEDS: oxyCODONE HCL IR 5 MG TAB (IMMEDIATE RELEASE) PO PRN ×2 (03:46→12:25)
[2022-01-09] MEDS: ENOXAPARIN INJ 30 MG/0.3 ML SYR SQ SCH (05:50)
[2022-01-09 06:57] VITALS: BP 100/64; TEMP 98.6; O2SAT 96
[2022-01-09] MEDS: HYDROmorphone INJ 0.5 MG/0.5 ML SYR IV PRN ×2 (07:07→15:30)
--- NOTE | 2022-01-09 09:59 | Orthopedic Progress Note ---
Date of Service January 09, 2022 Assessment & Plan (1) Osteochondral defect of talus: Plan: Pt is NWB on Bilateral LE and splints are to stay in place. Work on transfer training w/ PT. She will continue with Lovenox and pain medication as prescribed. D/C home today. She will fu in the office with Dr. Ayala the week of 01/18/22. (2) Closed fracture of ankle, trimalleolar: (3) S/P ORIF (open reduction internal fixation) fracture: Admission and Anticipated Discharge Date Admission Date: January 06, 2022 Subjective Pt is a 31 y.o female who is post op day #2, s/p Left ankle ORIF and s/p a right ORIF of the talus osteochondral fracture and ankle lateral ligament repair. She was seen this am sitting upright in bed. She is alert and oriented x3. She states she is doing well. She c/o pain in the ankles. She states she is able to feel her toes, although the top of her left foot is a little tingly. She did well with PT yesterday. She denies any CP, SOB, calf pain, fevers, chills. She would like to go home today. Physical Exam Physical Exam: Resting comfortably in bed in NAD B/L LE: splints fitting well. L foot shows mild decreased sensation to LT in SPN distribution. Otherwise NVI over her exposed toes. Wiggles toes. Results & Data ([facility]) Vital Signs (Past 12 Hours) Vital Signs Temp Pulse Resp BP Pulse Ox O2 Del Method 01/09/22 06:54 37 C 75 16 100/64 96 Room Air 01/08/22 23:19 36.8 C 65 16 109/72 97 Room Air (1) Closed fracture of ankle, trimalleolar Encounter type: initial encounter Laterality: left Qualified Code(s): S82.852A - Displaced trimalleolar fracture of left lower leg, initial encounter for closed fracture
[2022-01-09 10:04] VITALS: PULSE 92
[2022-01-09] MEDS: CHOLECALCIFEROL 1,000 UNITS 25 MCG TAB PO SCH ×2 (10:10→10:43)
[2022-01-09] MEDS: DOCUSATE SODIUM 100 MG CAP PO SCH ×2 (10:11→10:43)
[2022-01-09] MEDS: MULTIVITAMIN TAB PO SCH ×2 (10:11→10:44)
--- NOTE | 2022-01-12 19:51 | Discharge Summary (DS) ---
DATE OF ADMISSION: 01/06/2022 DATE OF DISCHARGE: 01/09/2022 ATTENDING PHYSICIAN: Dalton Ayala MD. CONSULTING PHYSICIANS: Dr. Whitten and also consulting hospitalist, Dr. Ríos. CONDITION ON DISCHARGE: Stable. FINAL DIAGNOSES: Left ankle status post open reduction and internal fixation of the medial and later al malleoli and right talus open reduction and internal fixation of osteochondral fracture with later al ligament repair. PROCEDURE: Left ankle ORIF of the medial and lateral malleoli and right talus ORIF of osteochondral fracture with lateral ligament repair on 01/07/2022. HISTORY OF PRESENT ILLNESS: This 31-year-old female presented through the ED for evaluation of both ankles. She fell approximately 8 feet off of a climbing wall. She landed on her feet, had immediate onset of pain. There was deformity noted in the left ankle. Reduction was performed in the ED. Th e patient was admitted for surgical intervention. The patient was medically cleared and taken to [facility] on [facility]07[facility]. Both ankles required open reduction and internal fixation. Preoperative imaging including x-rays, CT scan, and MRI were performed. After a successful surgical intervention, the pa tarun was taken to the recovery room and had an uneventful evening. She was reassessed on 01/08/2022 and was found to be resting comfortably in bed. Pain was well controlled. She did participate in O T and PT. Vital signs remained stable. Dressings remained clean and dry. She was able to wiggle he r toes. She remained nonweightbearing on both lower extremities. Prescription for wheelchair was pr ovided. Lovenox for DVT prophylaxis was instituted. The patient did well overnight. She was reasse ssed on 01/09/2022. Importance of nonweightbearing status was emphasized. Vitals remained stable. She was deemed adequate for discharge to home. She denies any chest pain, shortness of breath, calf pain, fevers, chills, or sweats. Bilateral lower extremity splints were evaluated and found to be fi tting well. She did have some mild decreased sensation on the left foot dorsally; this will be reass essed in followup. The patient will follow up in the office on 01/25/2022 at 1:00 p.m. Written disc harge instructions were provided. Importance of ice and elevation was discussed. DISCHARGE MEDICATIONS: Tylenol 325 mg, Lovenox 30 mg, Naprosyn 220 mg, oxycodone 5 mg. She will con tinue her vitamin D3 daily and vitamin B complex daily. Written discharge instructions were provided. Job ID: [id number]
== END 2022-01-09 16:24 | disposition home or self-care (01) ==
LOC: ED 19:04 → SUATTDRO 01-06 01:21 → 3N 01-06 02:21 → INTOOBSV 01-06 02:33 → 3N 01-06 02:33 → SUATTDRO 01-06 02:33
DX: Y93.31 Activity, mountain climbing, rock climbing and wall climbing; Z87.891 Personal history of nicotine dependence; Z88.0 Allergy status to penicillin; S82.852A Displaced trimalleolar fracture of left lower leg, initial encounter for closed fracture; S92.901A Unspecified fracture of right foot, initial encounter for closed fracture; W13.8XXA Fall from, out of or through other building or structure, initial encounter